=== PATIENT | female | born 1985 | race Caucasian/White ===

== ENCOUNTER 2020-02-14 15:22 | Emergency (ER) | payer BC ==
--- OUTSIDE RECORDS SUMMARY | 2020-02-14 15:27 | XMS REPORT | Continuity of Care Document ---
:1985 Author Organization [facility] t Address [address] [place] [address] Care Team Providers Name Role Phone Kayla Ruiz Attending Clinician Brigido Patel MD Attending Clinician Problems This patient has no known problems. Allergies, Adverse Reactions, Alerts This patient has no known allergies or adverse reactions. Medications This patient has no known medications. Procedures This patient has no known procedures. Encounters Start End Encounter Admission Attending Care Care Encounter Source Date/Time Date/Time Type Type Clinicians Facility Department ID 2019-10-27 2019-10-28 Emergency Charmaine [facility] [id number] 23:32:00 02:15:00 Kayla Bolaños [id number] [place] [id number] [place] [id number] 2019-10-25 2019-10-25 Emergency [facility] [id number] 02:55:00 05:43:00 Charbel Bolaños [id number] [place] [id number] [place] [id number] Results This patient has no known results.
--- NOTE | 2020-02-14 20:30 | ER ---
Nurse's Notes [facility] Name: Brit Burnette Age: 34 yrs Sex: Female : 1985 Arrival Date: 02/14/2020 Time: 15:24 Bed 7 Private MD: Diagnosis: Incomplete spontaneous without complication Presentation: 02/13 16:25 Chief complaint: Patient states: Had miscarriage 2 weeks ago, I still bleeding until ca1 now, bright red, moderate flow. Been feeling tired and weak. Denies fever. C/O of cramps and low back pain. Coronavirus screen: Client denies travel out of the [place] in the last 14 days. At this time, the client does not indicate any symptoms associated with coronavirus-19. Ebola Screen: Patient negative for fever greater than or equal to 101.5 degrees Fahrenheit, and additional compatible Ebola Virus Disease symptoms Patient denies exposure to infectious person. Patient denies travel to an Ebola-affected area in the 21 days before illness onset. No symptoms or risks identified at this time. Initial Sepsis Screen: Does the patient meet any 2 criteria? No. Patient's initial sepsis screen is negative. Does the patient have a suspected source of infection? No. Patient's initial sepsis screen is negative. Risk Assessment: Do you want to hurt yourself or someone else? Patient reports no desire to harm self or others. Onset of symptoms was February 14, 2020. 16:25 Method Of Arrival: Ambulatory ca1 16:25 Acuity: BREANNE 3 ca1 MANAGER MANAGED BACKUP SERVICES: 16:28 LMP N/A - miscarriage ca1 22:15 3, 2, Living 1 [facility] Historical: - Allergies: 16:28 No Known Allergies; ca1 - Home Meds: 16:28 Metformin Oral [Active]; ca1 - PMHx: 16:28 Diabetes - NIDDM; ca1 - PSHx: 16:28 D \T\ C; ca1 - Immunization history:: Adult Immunizations up to date, Flu vaccine is not up to date. - Social history:: Smoking status: Patient denies any tobacco usage or history of. Screenin:33 Abuse screen: Denies threats or abuse. Denies injuries from another. Tuberculosis rv screening: No symptoms or risk factors identified. Fall Risk None identified. 22:34 Nutritional screening: No deficits noted. rv Assessment: 21:55 General: Appears uncomfortable, Behavior is calm, cooperative. Pain:. Neuro: Level of rv Consciousness is awake, alert, obeys commands, Oriented to person, place, time, situation. Cardiovascular: Patient's skin is warm and dry. Rhythm is regular. Respiratory: Airway is patent Respiratory effort is even, unlabored, Breath sounds are clear bilaterally. : Reports vaginal bleeding that is moderate flow. Derm: Skin is intact. 22:33 Pain: Complains of pain in abdomen Pain currently is 2 out of 10 on a pain scale. rv Quality of pain is described as crampy. Vital Signs: 16:25 BP 128 / 86; Pulse 92; Resp 16 S; Temp 97.6(TE); Pulse Ox 100% on R/A; Weight 65.77 kg ca1 (R); Height 5 ft. 4 in. (162.56 cm) (R); Pain 2/10; 22:18 BP 124 / 77; Pulse 87; Resp 17; Pulse Ox 100% on R/A; rv 22:25 BP 125 / 79; Pulse 74; Resp 17; Pulse Ox 100% on R/A; rv 22:33 BP 124 / 85; Pulse 87; Resp 17; Pulse Ox 100% ; rv 16:25 Body Mass Index 24.89 (65.77 kg, 162.56 cm) ca1 ED Course: 15:24 Patient arrived in ED. ag5 16:27 Triage completed. ca1 16:28 Arm band placed on right wrist. ca1 20:28 Patient's name was called from ER lobby. No response. Unable to locate patient. Will ca1 disposition as left without being seen by a provider. 21:51 Manoj Arguello, NORY is Primary Nurse. sg 22:03 Malachi Esteves PA is PHCP. jarvism 22:03 Santiago Coates MD is Attending Physician. jmm 22:15 Inserted saline lock: 20 gauge in right antecubital area, using aseptic technique. rv Blood collected. 22:15 Initial lab(s) drawn, by me, sent to lab. rv 22:34 Patient has correct armband on for positive identification. Placed in gown. Bed in low rv position. Call light in reach. Side rails up X 1. security monitor on. Pulse ox on. NIBP on. 23:25 Transvaginal Study Probe In Process Unspecified. EDMS 23:25 Nader Dawn MD is Referral Physician. m 23:29 Assist provider with pelvic exam: Performed by Malachi AMBROCIO. ll2 23:32 IV discontinued, intact, bleeding controlled, No redness/swelling at site. Pressure rv dressing applied. Administered Medications: 22:30 Drug: NS 0.9% 1000 ml Route: IV; Rate: 1 bolus; Site: right antecubital; rv Outcome: 20:28 Patient left the ED. ca1 23:26 Discharge ordered by . jmm 23:32 Discharged to home ambulatory. rv 23:32 Condition: good 23:32 Discharge instructions given to patient, Instructed on discharge instructions, follow up and referral plans. Demonstrated understanding of instructions, follow-up care. 23:33 Patient left the ED. rv Signatures: Dispatcher [employer] EDMS Manoj Arguello, RN Malachi Gallardo PA PA [facility] Durga Schneider RN RN rv Mary Jiménez RN RN [facility] [place] [address] Silvia Beal RN RN ll2
[2020-02-14 22:12] LABS: Urine Blood 2+ (NEG); Urine Glucose NEGATIVE (NEG); Urine Protein NEGATIVE (NEG); Urine Specific Gravity 1.015 (1.005-1.030)
[2020-02-14 22:33] LABS: Absolute Lymphocytes (CBC) 3.4 K/uL (0.7-4.9); Basophils % 1.1 % (0-1.3); Lymphocytes % 29.8 % (15.3-44.8); MPV 7.5 fL (7.6-11.3); RBC Red Blood Cell Count 4.31 M/uL (3.86-4.86)
[2020-02-14] MEDS ORDERED: NA CHLORIDE 0.9% 1,000 ML ONE (22:34)
[2020-02-14 22:51] LABS: Bilirubin Total 0.3 mg/dL (0.2-1.0); Potassium 3.2 mmol/L (3.5-5.1); Protein, Total 8.2 g/dL (6.4-8.2)
--- NOTE | 2020-02-14 23:27 | EDPHYS ---
Physician Documentation [facility] Name: Brit Burnette Age: 34 yrs Sex: Female : 1985 Arrival Date: 02/14/2020 Time: 15:24 Bed 7 Private MD: ED Physician Santiago Coates HPI: 02/13 22:15 This 34 yrs old Female presents to ER via Ambulatory with complaints of jmm Vaginal Bleeding, Weakness. 22:15 The patient presents with vaginal bleeding that is moderate. Onset: The jmm symptoms/episode began/occurred gradually, 2 week(s) ago. Modifying factors: The symptoms are alleviated by nothing, the symptoms are aggravated by nothing. Associated signs and symptoms: Pertinent positives: cramping. This is a 34 year old female with a history of DM, that presents to the ED with complaints of pelvic pain, vaginal bleeding, low back pain, weakness beginning approx 2 weeks ago after a miscarriage. . 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 - Social history:: Smoking status: Patient denies any tobacco usage or history of. ROS: 22:15 Constitutional: Negative for fever, chills, and weight loss, Cardiovascular: Negative jmm for chest pain, palpitations, and edema, Respiratory: Negative for shortness of breath, cough, wheezing, and pleuritic chest pain. 22:15 : Positive for vaginal bleeding. 22:15 All other systems are negative. Exam: 22:15 Constitutional: This is a well developed, well nourished patient who is awake, alert, jmm and in no acute distress. Head/Face: atraumatic. Eyes: EOMI, no conjunctival erythema appreciated ENT: Moist Mucus Membranes Neck: Trachea midline, Supple Chest/axilla: Normal chest wall appearance and motion. Cardiovascular: Regular rate and rhythm. No edema appreciated Respiratory: Normal respirations, no respiratory distress appreciated Abdomen/GI: Non distended, soft Back: Normal ROM Skin: General appearance color normal MS/ Extremity: Moves all extremities, no obvious deformities appreciated, no edema noted to the lower extremities Neuro: Awake and alert, normal gait Psych: Behavior is normal, Mood is normal, Patient is cooperative and pleasant 23:23 : Pelvic Exam: Speculum exam: mild bleeding, blood clots in vaginal vault, a female [facility] account installation specialist was present for the exam. Vital Signs: 16:25 BP 128 / 86; Pulse 92; Resp 16 S; Temp 97.6(TE); Pulse Ox 100% on R/A; Weight 65.77 kg ca1 (R); Height 5 ft. 4 in. (162.56 cm) (R); Pain 2/10; 22:18 BP 124 / 77; Pulse 87; Resp 17; Pulse Ox 100% on R/A; rv 22:25 BP 125 / 79; Pulse 74; Resp 17; Pulse Ox 100% on R/A; rv 22:33 BP 124 / 85; Pulse 87; Resp 17; Pulse Ox 100% ; rv 16:25 Body Mass Index 24.89 (65.77 kg, 162.56 cm) ca1 MDM: 22:03 Patient medically screened. [facility] 23:24 Data reviewed: vital signs, nurses notes. Counseling: I had a detailed discussion with damaso the patient and/or guardian regarding: the historical points, exam findings, and any diagnostic results supporting the discharge/admit diagnosis, lab results, radiology results, the need for outpatient follow up, to return to the emergency department if symptoms worsen or persist or if there are any questions or concerns that arise at home. ED course: VS normal. Normal orthostatics. Mild bleeding on pelvic exam. Patient advised of the need for close follow up with obgyn for further evaluation. Patient otherwise given strict return precautions. Patient understood and agrees with the plan of care. . 02/13 22:05 Order name: CBC with Diff; Complete Time: 22:52 [facility] 02/13 22:05 Order name: CMP; Complete Time: 22:52 [facility] 02/13 22:05 Order name: Type And Screen; Complete Time: 23:10 [facility] 02/13 22:08 Order name: Urine --Ancillary (enter results); Complete Time: 22:18 tt3 02/13 22:08 Order name: Urine Dipstick--Ancillary (enter results); Complete Time: 22:18 tt3 02/13 22:18 Order name: Quantitative Hcg; Complete Time: 23:22 [facility] 02/13 22:05 Order name: Saline Lock; Complete Time: 22:18 [facility] 02/13 22:06 Order name: Pelvic Exam Setup; Complete Time: 22:33 [facility] 02/13 22:07 Order name: Orthostatic Blood Pressure; Complete Time: 22:33 [facility] 02/13 23:20 Order name: Transvaginal Study Probe EDMS Administered Medications: 22:30 Drug: NS 0.9% 1000 ml Route: IV; Rate: 1 bolus; Site: right antecubital; rv Disposition: 02/14 02:07 Co-signature as Attending Physician, Santiago Coates MD. pksherie Disposition: 02/14/20 23:26 Discharged to Home. Impression: Incomplete spontaneous without complication. - Condition is Stable. - Discharge Instructions: Incomplete Miscarriage. - Medication Reconciliation Form, Thank You Letter, Antibiotic Education, Prescription Opioid Use form. - Follow up: Nader Dawn MD; When: 1 - 2 days; Reason: Recheck today's complaints, Continuance of care, Re-evaluation by your physician. Signatures: Dispatcher [employer] EDMD Santiago Coates MD MD pkMalachi Doan PA PA [facility] Durga cShneider, RN RN rv Mary Jiménez RN RN ca1 Corrections: (The following items were deleted from the chart) 02/13 21:54 20:28 02/14/2020 20:28 Patient left the facility post triage evaluation and consult. ea Reason stated they are leaving due to (see nurse's notes). ca1 23:20 22:06 Pelvis Complete+US.RAD.BRZ ordered. [facility] EDMD 23:33 23:26 02/14/2020 23:26 Discharged to Home. Impression: Incomplete spontaneous rv without complication. Condition is Stable. Forms are Medication Reconciliation Form, Thank You Letter, Antibiotic Education, Prescription Opioid Use. Follow up: Nader Dawn; When: 1 - 2 days; Reason: Recheck today's complaints, Continuance of care, Re-evaluation by your physician. [facility]
--- NOTE | 2020-02-16 09:04 | RAD REPORT ---
EXAM DESCRIPTION: US - Transvaginal Study Probe - 02/14/2020 11:25 pm CLINICAL HISTORY: Vaginal bleeding, history of positive test, negative today TECHNIQUE: Transabdominal real-time and maria scale sonographic imaging of the pelvis was performed. Transvaginal images were acquired to better evaluate the adnexa. COMPARISON: None available for comparison FINDINGS: Uterus: The uterus is retroverted and measures 7.8 x 4.6 x 4.7 cm. Endometrium: 15 mm in thickness, heterogeneous. Color Doppler interrogation was not performed. Right ovary: The right ovary is not visualized. Left ovary: The left ovary is not visualized. Free fluid: None IMPRESSION: Thickened endometrium which may represent hemorrhagic products. Color Doppler interrogat ion was not performed. However, the absence of blood flow does not exclude the diagnosis of retained products of conception. Careful follow-up including correlation with beta-hCG levels is recommended. Electronically signed by: Mario Abreu MD 02/14/2020 11:54 PM METAL POURER Due to temporary technical issues with the PACS/Fluency reporting system, reports are being signed by the in house radiologists without review as a courtesy to insure prompt reporting. The interpreting radiologist is fully responsible for the content of the report.
== END 2020-02-14 23:33 | disposition home or self-care (01) ==
LOC: ER 15:22
DX: O03.4 Incomplete spontaneous abortion without complication (principal); E11.9 Type 2 diabetes mellitus without complications
CPT/HCPCS: 85025; 36415; 86900; 86850; 81025; 86901; 84702; 81003; 80053; 76830; 99284; J7030

== ENCOUNTER 2020-02-15 20:17 | Emergency (ER) | payer BC ==
--- OUTSIDE RECORDS SUMMARY | 2020-02-15 20:19 | XMS REPORT | Continuity of Care Document ---
:[address] [facility] t Address [address] [place] [address] Care Team Providers Name Role Phone Kayla [...] Clinicians Facility Department ID 2019-10-27 2019-10-28 [facility] [id number] 23:32:00 02:15:00 Kayla Bolaños [id number] [place] [id number] [place] [id number] 2019-10-25 2019-10-25 Emergency [facility] [id number] 02:55:00 05:43:00 Charbel Bolaños [id number] [place] [id number] [place] [id number] Results This patient has no known results.
[2020-02-15] MEDS ORDERED: LIDOCAINE 1% MPF 5 ML VIAL ONE (20:50)
[2020-02-15] MEDS ORDERED: TETANUS & DIPHTHERIA TOX,ADULT 0.5 ML VIAL ONE (20:50)
[2020-02-15 21:08] LABS: Absolute Lymphocytes (CBC) 1.8 K/uL (0.7-4.9); Basophils % 0.6 % (0-1.3); Lymphocytes % 14.3 % (15.3-44.8); MPV 7.5 fL (7.6-11.3); RBC Red Blood Cell Count 4.05 M/uL (3.86-4.86)
[2020-02-15 21:29] LABS: Potassium 3.6 mmol/L (3.5-5.1)
[2020-02-15] MEDS ORDERED: NA CHLORIDE 0.9% 1,000 ML ONE (21:59)
[2020-02-15] MEDS ORDERED: DERMABOND SKIN ADHESIVE TOP ONE (22:15)
[2020-02-15] MEDS ORDERED: METHYLERGONOVINE 0.2MG/ML AMP IM ONE (23:09)
[2020-02-15] MEDS ORDERED: ACETAMINOPHEN 325 MG TABLET ONE (23:16)
[2020-02-15] MEDS ORDERED: DOXYCYCLINE 100 MG CAP PO ONE (23:16)
--- NOTE | 2020-02-16 00:11 | ER ---
Nurse's Notes [facility] Name: Brit Burnette Age: 34 yrs Sex: Female : 1985 Arrival Date: 02/15/2020 Time: 20:20 Bed 3 Private MD: Diagnosis: Syncope. Head injury. Laceration forehead. Incomplete Presentation: 02/14 20:27 Chief complaint: EMS states: PATIENT HAD SYNCOPAL EPISODE WHILE TAKING A SHOWER, rv AMBULATORY UPON ARRIVAL. WITH LACERATION ON THE RIGHT EYEBROW. COMPLAINS OF HEADACHE. WAS SEEN YESTERDAY FOR BLEEDING COMPLICATION OF MISCARRIAGE, AND DISCHARGED. Coronavirus screen: Client denies travel out of the [place] in the last 14 days. Ebola Screen: No symptoms or risks identified at this time. Initial Sepsis Screen: Does the patient meet any 2 criteria? Yes Does the patient have a suspected source of infection? No. Patient's initial sepsis screen is negative. Risk Assessment: Do you want to hurt yourself or someone else? Patient reports no desire to harm self or others. Onset of symptoms was February 15, 2020 at 19:30. 20:27 Method Of Arrival: EMS: [facility] rv 20:27 Acuity: BREANNE 3 rv Triage Assessment: 20:30 General: Appears comfortable, Behavior is calm, cooperative. Pain: Complains of pain in rv HEAD. EENT: No signs and/or symptoms were reported regarding the EENT system. Neuro: Level of Consciousness is awake, alert, obeys commands, Oriented to person, place, time, situation. Cardiovascular: Patient's skin is warm and dry. Respiratory: Airway is patent. Derm: Skin is intact. Injury Description: Laceration sustained to outer aspect of right eyebrow is clean, superficial, 0.5 to 2.5 cm long, not bleeding. Historical: - Allergies: 20:30 No Known Allergies; rv - PMHx: 20:30 Diabetes - NIDDM; rv - PSHx: 20:30 None; rv - Immunization history:: Adult Immunizations up to date, Last tetanus immunization: unknown. - Social history:: Smoking status: Patient denies any tobacco usage or history of. Screenin:32 Abuse screen: Denies threats or abuse. Denies injuries from another. Nutritional rv screening: On. Tuberculosis screening: No symptoms or risk factors identified. Fall Risk Fall in past 12 months (25 points). No secondary diagnosis (0 pts). IV access (20 points). Ambulatory Aid- None/Bed Rest/Nurse Assist (0 pts). Gait- Normal/Bed Rest/Wheelchair (0 pts) Mental Status- Oriented to own ability (0 pts). Total Hutchinson Fall Scale indicates No Risk (0-24 pts). Vital Signs: 20:27 BP 112 / 71; Pulse 99; Resp 18; Temp 98.2; Pulse Ox 100% ; Weight 65.77 kg; Height 5 rv ft. 4 in. (162.56 cm); Pain 5/10; 23:00 BP 118 / 76; Pulse 98; Resp 17; Pulse Ox 100% ; rv 02/15 00:00 BP 116 / 68; Pulse 96; Resp 16; Pulse Ox 100% on R/A; rv 02/14 20:27 Body Mass Index 24.89 (65.77 kg, 162.56 cm) rv ED Course: 02/14 20:20 Patient arrived in ED. mw2 20:20 Santiago Coates MD is Attending Physician. pkl 20:27 Durga Schneider RN is Primary Nurse. rv 20:30 Triage completed. rv 20:31 Arm band placed on right wrist. Patient placed in the treatment room, on a stretcher, rv Patient notified of wait time. 20:32 Patient has correct armband on for positive identification. library monitor on. Pulse rv ox on. NIBP on. 22:30 Inserted saline lock: 20 gauge in right antecubital area, using aseptic technique. rv Blood collected. 22:30 Initial lab(s) drawn, by id, sent to lab. rv 22:56 US Transvaginal Study (Probe) In Process Unspecified. EDMS 23:00 Assist provider with pelvic exam: Set up pelvic tray. Performed by Santiago Coates MD Specimens rv sent to lab. POC sent to pathology, Patient tolerated well. ZIPPY AT BEDSIDE. 23:37 CT Head Brain wo Cont In Process Unspecified. EDMS 02/15 00:08 Nader Dawn MD is Referral Physician. pkl 00:41 IV discontinued, intact, bleeding controlled, No redness/swelling at site. Pressure rv dressing applied. Administered Medications: 02/14 21:45 Drug: NS 0.9% 1000 ml Route: IV; Rate: 125 ml/hr; Site: right antecubital; rv 02/15 00:00 Follow up: IV Status: Order to discontinue infusion rv 02/14 21:58 Drug: Tetanus-Diphtheria Toxoid Adult 0.5 ml {Carbon Paper Coating Machine Setter: Kihon. Exp: rv 07/03/2021. Lot #: [id number]. } Route: IM; Site: left deltoid; 02/15 00:00 Follow up: Response: No adverse reaction rv 02/14 22:57 Drug: METHERgine 0.2 mg Route: IM; Site: right deltoid; rv 02/15 00:00 Follow up: Response: No adverse reaction rv 02/14 23:06 Drug: Tylenol 650 mg Route: PO; rv 02/15 00:00 Follow up: Response: No adverse reaction rv 02/14 23:06 Drug: Doxycycline 200 mg Route: PO; rv 02/15 00:00 Follow up: Response: No adverse reaction rv Outcome: 00:10 Discharge ordered by . arelis 00:41 Discharged to home ambulatory, with family. rv 00:41 Condition: good 00:41 Discharge instructions given to patient, Instructed on discharge instructions, follow up and referral plans. medication usage, Demonstrated understanding of instructions, follow-up care, medications, Prescriptions given X 2. 00:41 Patient left the ED. rv Signatures: Dispatcher [employer] Santiago Weinstein MD MD pkl [place], MyKena mw2 Durga Schneider RN RN rv
--- NOTE | 2020-02-16 00:11 | EDPHYS ---
Physician Documentation [facility] Name: Brit Burnette Age: 34 yrs Sex: Female : 1985 Arrival Date: 02/15/2020 Time: 20:20 Bed 3 Private MD: ED Physician Santiago Coates HPI: 02/14 22:50 This 34 yrs old Female presents to ER via EMS with unknown complaint. pkl 22:50 The patient has experienced syncope, became unresponsive. Onset: The symptoms/episode pkl began/occurred just prior to arrival. Patient had miscarriage 2 weeks. Was seen in this ER yesterday, US done showed some retained products of conception. Today she passed out in the shower and hit steven forehead.. Historical: - Allergies: 20:30 No Known Allergies; rv - PMHx: 20:30 Diabetes - NIDDM; rv - PSHx: 20:30 None; rv - Immunization history:: Adult Immunizations up to date, Last tetanus immunization: unknown. - Social history:: Smoking status: Patient denies any tobacco usage or history of. ROS: 22:50 Eyes: Negative for injury, pain, redness, and discharge, ENT: Negative for injury, pkl pain, and discharge, Neck: Negative for injury, pain, and swelling, Cardiovascular: Negative for chest pain, palpitations, and edema, Respiratory: Negative for shortness of breath, cough, wheezing, and pleuritic chest pain, Abdomen/GI: Negative for abdominal pain, nausea, vomiting, diarrhea, and constipation, Back: Negative for injury and pain. 22:50 : Positive for vaginal bleeding. 22:50 MS/extremity: Negative for acute changes. 22:50 Skin: Positive for laceration(s), of the above right eye. 22:50 Neuro: Positive for syncope. Exam: 22:50 Abdomen/GI: Exam negative for acute changes. pkl 22:50 Eyes: Pupils equal round and reactive to light, extra-ocular motions intact. Lids and lashes normal. Conjunctiva and sclera are non-icteric and not injected. Cornea within normal limits. Periorbital areas with no swelling, redness, or edema. 22:50 Head/face: Noted is a laceration(s), that is linear, 1.5 cm(s), of the above right eye. 22:50 ENT: Exam is negative for acute changes. 22:50 Neck: Exam negative for nuchal rigidity. 22:50 Chest/axilla: Exam negative for acute changes. 22:50 Cardiovascular: Rate: normal, Rhythm: regular. 22:50 Respiratory: the patient does not display signs of respiratory distress, Respirations: normal, Breath sounds: are clear throughout. 22:50 Abdomen/GI: Bowel sounds: normal, Palpation: abdomen is soft and non-tender, in all quadrants. 22:50 Back: Exam negative for acute changes. 22:50 : Pelvic Exam: Speculum exam: scant bleeding, tissue in cervix is seen, a female ampoule washing machine operator was present for the exam. 22:50 Musculoskeletal/extremity: Exam is negative for acute changes. 22:50 Skin: Exam negative for rash. 22:50 Neuro: Orientation: is normal, Mentation: is normal, Cranial nerves: is grossly normal based on the patient's age, Motor: is normal. Vital Signs: 20:27 BP 112 / 71; Pulse 99; Resp 18; Temp 98.2; Pulse Ox 100% ; Weight 65.77 kg; Height 5 rv ft. 4 in. (162.56 cm); Pain 5/10; 23:00 BP 118 / 76; Pulse 98; Resp 17; Pulse Ox 100% ; rv 12/05 00:00 BP 116 / 68; Pulse 96; Resp 16; Pulse Ox 100% on R/A; rv 1204 20:27 Body Mass Index 24.89 (65.77 kg, 162.56 cm) rv Laceration: 00:10 Wound Repair of 1.5cm ( 0.6in ) subcutaneous laceration to above right eye. Linear pkl shaped.. Minimal bleeding noted.. Distal neuro/vascular/tendon intact. Wound prep: Moderate cleansing by nurse. Skin closed with Laceration closed with Dermabond Prolene using simple sutures and sterile technique. Dressed with Neosporin. Patient tolerated well. MDM: 02/14 20:20 Patient medically screened. pkl 22:50 Data reviewed: vital signs, nurses notes, lab test result(s), radiologic studies, pkl ultrasound. ED course: Tissue ( POC ) in cervix removed with ring forceps. Minimal bleeding noted. Repeat US showed no more retained POC. Patient advised to follow up with Dr. Dawn ( Ob- Client Finance Analyst ) in 2 to 3 days. Patient understood instructions. 12/04 20:41 Order name: Quantitative Hcg; Complete Time: 21:44 snw 02/14 20:41 Order name: Abo/rh Typing; Complete Time: 21:44 snw 02/14 20:41 Order name: Basic Metabolic Panel; Complete Time: 21:44 snw 02/14 20:41 Order name: CBC with Diff; Complete Time: 21:19 snw 02/14 21:48 Order name: US Transvaginal Study (Probe) pkl 02/14 23:12 Order name: CT Head Brain wo Cont pkl 02/14 20:41 Order name: IV Saline Lock; Complete Time: 20:48 snw 02/14 20:41 Order name: Labs collected and sent; Complete Time: 20:48 snw 02/14 20:41 Order name: NPO; Complete Time: 20:48 snw Administered Medications: 21:45 Drug: NS 0.9% 1000 ml Route: IV; Rate: 125 ml/hr; Site: right antecubital; rv 02/15 00:00 Follow up: IV Status: Order to discontinue infusion rv 02/14 21:58 Drug: Tetanus-Diphtheria Toxoid Adult 0.5 ml {Dispute Resolution Specialist: [employer]. Exp: rv 07/03/2021. Lot #: [id number]. } Route: IM; Site: left deltoid; 02/15 00:00 Follow up: Response: No adverse reaction rv 02/14 22:57 Drug: METHERgine 0.2 mg Route: IM; Site: right deltoid; rv 02/15 00:00 Follow up: Response: No adverse reaction rv 02/14 23:06 Drug: Tylenol 650 mg Route: PO; rv 02/15 00:00 Follow up: Response: No adverse reaction rv 02/14 23:06 Drug: Doxycycline 200 mg Route: PO; rv 02/15 00:00 Follow up: Response: No adverse reaction rv Disposition: 02/16/20 00:10 Discharged to Home. Impression: Syncope. Head injury. Laceration forehead. Incomplete . - Condition is Stable. - Prescriptions for Doxycycline Hyclate 100 mg Oral Tablet - take 1 tablet by ORAL route every 12 hours for 7 days; 14 tablet. - Medication Reconciliation Form, Thank You Letter, Antibiotic Education, Prescription Opioid Use form. - Follow up: Nader Dawn MD; When: 2 - 3 days; Reason: Re-evaluation by your physician. - Problem is new. - Symptoms have improved. Signatures: Dispatcher [employer] Santiago Weinstein MD MD pkl Waters, Shelly, FURNITURE POLISHER-C FURNITURE POLISHER-Csnw Durga Schneider, RN RN rv Corrections: (The following items were deleted from the chart) 00:41 00:10 02/16/2020 00:10 Discharged to Home. Impression: Syncope. Head injury. Laceration rv forehead. Incomplete . Condition is Stable. Forms are Medication Reconciliation Form, Thank You Letter, Antibiotic Education, Prescription Opioid Use. Follow up: Nader Dawn; When: 2 - 3 days; Reason: Re-evaluation by your physician. Problem is new. Symptoms have improved. pkl
--- NOTE | 2020-02-16 08:34 | RAD REPORT ---
EXAM DESCRIPTION: US - Transvaginal Study Probe - 02/15/2020 10:56 pm CLINICAL HISTORY: Vaginal bleeding COMPARISON: 02/14/2020 FINDINGS: The uterus measures 8 x 4 x 5cm. The uterus is retroverted A fibroid is not seen. The endo metrial stripe measures 9 millimeters. The cervical canal measures approximately 13 millimeters and i s heterogeneous The ovaries are normal in size and echotexture. Limited evaluation of the right and left adnexal seco ndary to overlying bowel gas No significant free fluid is seen. IMPRESSION: Thickened cervical canal which is heterogeneous probably an incomplete
--- NOTE | 2020-02-16 09:03 | RAD REPORT ---
EXAM DESCRIPTION: CT - Head Brain Wo Cont - 02/16/2020 6:27 am CLINICAL HISTORY: HEADACHE TECHNIQUE: Contiguous axial CT images obtained through the brain without IV contrast. Coronal and sa gittal reformatted images were provided. This exam was performed according to our departmental dose-optimization program, which includes autom ated exposure control, adjustment of the mA and/or kV according to patient size and/or use of iterati ve reconstruction technique. COMPARISON: None available for comparison FINDINGS: Brain: No significant white matter changes. No focal mass effect. Prince-white matter differ entiation is within normal limits. No hemorrhage. Ventricles: No ventriculomegaly or midline shift. Extra-axial spaces: No extra-axial collection or hemorrhage. Paranasal sinuses and mastoid air cells: Well-aerated Vessels: Unremarkable Bones: Unremarkable Soft tissues: Unremarkable IMPRESSION: No acute intracranial or extra-axial abnormality. Electronically signed by: Mario Abreu MD 02/15/2020 11:47 PM [employer]POOL CLE[employer]ER Due to temporary technical issues with the PACS/Fluency reporting system, reports are being signed by the in house radiologists without review as a courtesy to insure prompt reporting. The interpreting radiologist is fully responsible for the content of the report.
== END 2020-02-16 00:41 | disposition home or self-care (01) ==
LOC: ER 20:17
PROC: 0JQ10ZZ Repair Face Subcutaneous Tissue and Fascia, Open Approach (ICD-10-PCS; principal; 2020-02-16)
DX: S01.81XA Laceration without foreign body of other part of head, initial encounter (principal); O03.4 Incomplete spontaneous abortion without complication; W19.XXXA Unspecified fall, initial encounter; Y93.E1 Activity, personal bathing and showering; Y92.002 Bathroom of unspecified non-institutional (private) residence as the place of occurrence of the external cause; Z23 Encounter for immunization
CPT/HCPCS: 96361; 85025; 80048; 36415; 86900; 86901; 88305; 84702; 70450; 90471; 90714; 76830; 96360; 96372; 99285; 12011; J2210; J7030